=== PATIENT | male | born 1975 | race Caucasian/White ===

== ENCOUNTER 2019-01-13 12:19 | Emergency (ER) | payer OTHER ==
[~2019-01-13] VITALS: Ht 180.3 cm; Wt 135.2 kg
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
[2019-01-13 13:40] VITALS: BP 116/79
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
--- OUTSIDE RECORDS SUMMARY | 2019-01-13 14:37 | XMS REPORT ---
Author Author [facility] Organization [facility] Address [address] [place], [place] [address] Care Team Providers Care Retail Sales Assistant Name Role Phone PCP Unavailable Allergies and Adverse Reactions Name Reaction Notes Keflex hives Percocet hives Plan of Treatment Not available. Medications Name Start Date Expiration Date SIG Comments azithromycin oral tablet 250 mg 03/07/2014 03/12/2014 take 2 tablets (500 mg) by oral route once daily for 1 day then 1 tablet (250 mg) by oral route once daily for 4 days Zithromax Z-Jaleel oral tablet 250 mg 10/05/2014 10/10/2014 take 2 tablets (500 mg) by oral route once daily for 1 day then 1 tablet (250 mg) by oral route once daily for 4 days Problem List Description Status Onset *No known medical problems Active Vital Signs Date Time BP-Sys(mm[Hg] BP-Claudine(mm[Hg]) HR(bpm) RR(rpm) Temp WT HT HC BMI BSA BMI Percentile O2 Sat(%) 04/02/2015 11:39:00 AM 120 mmHg 85 mmHg 58 bpm 16 rpm 98.6 F 278 lbs 71 in 38.77 kg/m2 2.51 m2 98 % 02/26/2015 11:17:00 AM 126 mmHg 78 mmHg 80 bpm 20 rpm 97.8 F 279 lbs 71 in 38.9122 kg/m 2.5179 m 98 % 10/05/2014 9:58:00 AM 118 mmHg 82 mmHg 76 bpm 20 rpm 97.8 F 274 lbs 71 in 38.21 kg/m2 2.50 m2 96 % 03/07/2014 9:27:00 AM 108 mmHg 68 mmHg 70 bpm 18 rpm 97.2 F 279.125 lbs 71 in 38.9296 kg/m 2.5184 m 95 % 09/26/2013 8:22:00 AM 118 mmHg 82 mmHg 56 bpm 18 rpm 97.2 F 267 lbs 71 in 37.24 kg/m2 2.46 m2 98 % Social History Name Description Comments Tobacco Current every day smoker Chewing Tobacco Former Alcohol social History of Procedures Date Ordered Description Order Status 09/26/2013 12:00 AM URINALYSIS AUTO W/O SCOPE Reviewed 03/07/2014 12:00 AM THER/PROPH/DIAG INJ SC/IM Reviewed 03/07/2014 12:00 AM Decadron 8 mg NDC# [address]-27 Reviewed 03/07/2014 12:00 AM Depo-Medrol, Per 80 Mg NDC#[address]-36 Reviewed 10/05/2014 12:00 AM THER/PROPH/DIAG INJ SC/IM Reviewed 10/05/2014 12:00 AM Decadron, Per 1 Mg NDC# [address]-41 Reviewed 10/05/2014 12:00 AM Depo-Medrol, Per 80 Mg NDC#7703-3508-22 Reviewed 04/02/2015 12:00 AM CULTURE OTHR SPECIMN AEROBIC Returned Results Summary Not available. History Of Immunizations Not available. History of Past Illness Name Date of Onset Comments *No known medical problems DOT Sep 26 2013 8:44AM Upper Respiratory Infection Mar 07 2014 9:35AM Upper Respiratory Infections Oct 05 2014 10:01AM Preparticipation Physical Feb 26 2015 11:19AM Wound infection Apr 02 2015 11:40AM Payers Insurance Name Company Name Plan Name Plan Number Policy Number Policy Group Number Start Date Occ Med Occupational Medicine SHAYNE GARNETT N/A [facility] [id number] N/A History of Encounters Visit Date Visit Type Provider 04/02/2015 Office visit Rogerio Shrestha APRN 02/26/2015 Office visit Bri Fuentes GLOBAL MANAGER 10/05/2014 Office visit Bri Fuentes GLOBAL MANAGER 03/07/2014 Office visit Rogerio Shrestha GLOBAL MANAGER 09/26/2013 Office visit ALDO CORRIGAN
--- OUTSIDE RECORDS SUMMARY | 2019-01-13 14:37 | XMS REPORT ---
Author Author Shagutfa Trevino [facility] Address [address] [place], [place] [id number] Care Team Providers Care Transfer Machine Operator Name Role Phone Shagufta Trevino PCP Unavailable Allergies and Adverse Reactions Name Reaction Notes Keflex hives Percocet hives Plan of Treatment Not available. Medications Active Name Start Date Estimated Completion Date SIG Comments Aleve 220 mg oral tablet Name Start Date Expiration Date SIG Comments azithromycin 250 mg oral tablet 03/07/2014 03/12/2014 take 2 tablets (500 mg) by oral route once daily for 1 day then 1 tablet (250 mg) by oral route once daily for 4 days Zithromax Z-Jaleel 250 mg oral tablet 10/05/2014 10/10/2014 take 2 tablets (500 mg) by oral route once daily for 1 day then 1 tablet (250 mg) by oral route once daily for 4 days Problem List Description Status Onset *No known medical problems Active Vital Signs Date Time BP-Sys(mm[Hg] BP-Claudine(mm[Hg]) HR(bpm) RR(rpm) Temp WT HT HC BMI BSA BMI Percentile O2 Sat(%) 09/10/2015 3:07:00 PM 126 mmHg 70 mmHg 79 bpm 18 rpm 97.2 F 293.125 lbs 71 in 40.88 kg/m2 2.58 m2 96 % 04/02/2015 11:39:00 AM 120 mmHg 85 mmHg 58 bpm 16 rpm 98.6 F 278 lbs 71 in 38.7727 kg/m 2.5133 m 98 % 02/26/2015 11:17:00 AM 126 mmHg 78 mmHg 80 bpm 20 rpm 97.8 F 279 lbs 71 in 38.91 kg/m2 2.52 m2 98 % 10/05/2014 9:58:00 AM 118 mmHg 82 mmHg 76 bpm 20 rpm 97.8 F 274 lbs 71 in 38.2149 kg/m 2.4952 m 96 % 03/07/2014 9:27:00 AM 108 mmHg 68 mmHg 70 bpm 18 rpm 97.2 F 279.125 lbs 71 in 38.93 kg/m2 2.52 m2 95 % 09/26/2013 8:22:00 AM 118 mmHg 82 mmHg 56 bpm 18 rpm 97.2 F 267 lbs 71 in 37.2386 kg/m 2.4631 m 98 % Social History Name Description Comments Tobacco Current every day smoker Chewing Tobacco Former Alcohol social History of Procedures Date Ordered Description Order Status 09/10/2015 3:26 PM URINALYSIS AUTO W/O SCOPE Reviewed 09/26/2013 12:00 AM URINALYSIS AUTO W/O SCOPE Reviewed 03/07/2014 12:00 AM THER/PROPH/DIAG INJ SC/IM Reviewed 03/07/2014 12:00 AM Decadron 8 mg NDC# [address]-11 Reviewed 03/07/2014 12:00 AM Depo-Medrol, Per 80 Mg NDC#[address]-46 Reviewed 10/05/2014 12:00 AM THER/PROPH/DIAG INJ SC/IM Reviewed 10/05/2014 12:00 AM Decadron, Per 1 Mg NDC# [address]-73 Reviewed 10/05/2014 12:00 AM Depo-Medrol, Per 80 Mg NDC#3355-2922-27 Reviewed 04/02/2015 12:00 AM CULTURE OTHR SPECIMN AEROBIC Returned Results Summary Data and Description Results 09/10/2015 3:26 PM Clarity Ur clear Color Ur yellow Glucose Ur-sCnc neg Bilirub Ur Ql Strip neg Ketones Ur Ql Strip neg Sp Gr Ur Qn 1.030 Hgb Ur Ql Strip neg pH Ur-LsCnc 5.5 Prot Ur Ql Strip trace Urobilinogen Ur-mCnc 0.2eu/dl Nitrite Ur Ql Strip neg WBC Est Ur Ql Strip neg History Of Immunizations Not available. 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 Payers Insurance Name Company Name Plan Name Plan Number Policy Number Policy Group Number Start Date [facility] Med Occupational Medicine [id number] N/A [facility] [id number] N/A [employer] [id number] N/A History of Encounters Visit Date Visit Type Provider 09/10/2015 Office visit Shagufta Trevino TURBOGENERATOR OPERATOR 04/02/2015 Office visit Rogerio Shrestha TURBOGENERATOR OPERATOR 02/26/2015 Office visit Bri Fuentes TURBOGENERATOR OPERATOR 10/05/2014 Office visit 10/05/2014 Office visit Bri Fuentes TURBOGENERATOR OPERATOR 03/07/2014 Office visit Rogerio Shrestha TURBOGENERATOR OPERATOR 09/26/2013 Office visit ALDO CORRIGAN
--- OUTSIDE RECORDS SUMMARY | 2019-01-13 14:37 | XMS REPORT | Continuity of Care Document ---
Author Organization Unknown Address Unknown Allergies Active Description Code Type Severity Reaction Onset Reported/Identified Relationship to Patient Clinical Status Yes CEPHALEXIN 66794961 DRUG N/A N/A Yes ENDOCET 30858200 BRANDNAME N/A N/A Yes PERCOCET 13705240 BRANDNAME N/A N/A Medications There is no data. Problems There is no data. Procedures There is no data. Results There is no data. Encounters ACCT No. Visit Date/Time Discharge Status Pt. Type Provider Facility Loc./Unit Complaint [id number] 09/01/2018 14:57:59 09/01/2018 23:59:59 CLS Outpatient Shagufta Trevino [id number] 09/08/2017 14:47:41 09/08/2017 23:59:59 CLS Outpatient Shagufta Trevino [id number] 09/10/2015 15:57:44 09/10/2015 23:59:59 CLS Outpatient Shagufta Trevino [id number] 04/02/2015 12:31:38 04/02/2015 23:59:59 CLS Outpatient Rogerio Shrestha [id number] 03/26/2015 22:14:10 03/26/2015 23:59:59 CLS Outpatient Bri Fuentes [id number] 03/07/2014 10:28:32 03/07/2014 23:59:59 CLS Outpatient Rogerio Shrestha [id number] 09/26/2013 09:19:40 09/26/2013 23:59:59 CLS Outpatient ALDO EVANS [id number] 04/27/2014 16:18:24 04/27/2014 16:18:24 DIS Outpatient [id number] 10/26/2015 09:57:34 10/26/2015 23:59:59 CLS Outpatient [facility] emg [id number] 09/09/2018 09:56:48 Document Registration [id number] 01/15/2018 10:23:05 Document Registration [id number] 01/15/2018 10:01:07 Document Registration [id number] 09/10/2017 11:29:22 Document Registration
--- OUTSIDE RECORDS SUMMARY | 2019-01-13 14:37 | XMS REPORT | CCD ---
Author CRISTY Bennett Unknown Address [address] [facility] [address] [place], [place] [address] Care Team Providers Care Community Recreation Programmer Name Role Phone HANDS RMAÓN, TOMI SCHERER Attphys Vital Signs Unknown or Not Available. Allergies Allergy Code Allergy Type Reaction Status CEPHALEXIN 2231 Drug allergy Active PERCOCET 40843 Drug allergy Active ENDOCET 457670 Drug allergy Active Procedures Unknown or Not Available. History of Immunizations Unknown or Not Available. Problems Unknown or Not Available. Results Unknown or Not Available. Active Medications Unknown or Not Available. Medications Administered During Visit Unknown or Not Available. Encounters Encounter Diagnosis Diagnosis Code Start Date ENCOUNTER FOR REMOVAL OF SUTURES V5832 04/05/2015 Social History Smoking Status Code Start Date End Date Never smoker [id number] Patient Decision Aids Unknown or Not Available. Discharge Instructions You were admitted to [facility] on 04/05/2015 with a principal diagnosis of ENCOUNTER FOR REMOVAL OF SUTURES. You were discharged from [facility] on 04/05/2015. Should you have any questions prior to discharge, please contact a member of your healthcare team. If you have left the hospital and have any questions, please contact your primary care physician. Chief Complaint and Reason For Visit Chief Complaint Date of Onset REMOVE STICHES Function Status Unknown or Not Available. Plan of Care Unknown or Not Available. Referral/Transition of Care Unknown or Not Available.
--- OUTSIDE RECORDS SUMMARY | 2019-01-13 14:37 | XMS REPORT ---
Author Author Shagufta Trevino [facility] Address [address] [facility] [address] [place], [place] [address] Care Team Providers Care Marble Worker Name Role Phone Shagufta Trevino PCP Allergies and Adverse Reactions Name Reaction Notes [...] HC BMI BSA BMI Percentile O2 Sat(%) 09/08/2017 2:06:00 PM 136 mmHg 71 mmHg 67 bpm 16 rpm 98.4 F 302 lbs 71 in 42.12 kg/m2 2.62 m2 97 % 09/10/2015 3:07:00 PM 126 mmHg 70 mmHg 79 bpm 18 rpm 97.2 F 293.125 lbs 71 in 40.8822 kg/m 2.5808 m 96 % 04/02/2015 11:39:00 AM 120 mmHg [...] 3:26 PM URINALYSIS AUTO W/O SCOPE Reviewed 09/08/2017 2:40 PM URINALYSIS AUTO W/O SCOPE Reviewed 09/26/2013 12:00 AM URINALYSIS AUTO W/O SCOPE Reviewed 03/07/2014 12:00 AM THER/PROPH/DIAG INJ SC/IM Reviewed 03/07/2014 12:00 AM Decadron 8 mg NDC# [address]-44 Reviewed 03/07/2014 12:00 AM Depo-Medrol, Per 80 Mg NDC#[address]-23 Reviewed 10/05/2014 12:00 AM THER/PROPH/DIAG INJ SC/IM Reviewed 10/05/2014 12:00 AM Decadron, Per 1 Mg NDC# [address]-64 Reviewed 10/05/2014 12:00 AM Depo-Medrol, Per 80 Mg NDC#7147-1308-82 Reviewed 04/02/2015 12:00 AM CULTURE OTHR SPECIMN AEROBIC Reviewed Results Summary Date and Description Results 09/10/2015 3:26 PM Clarity Ur clear Color Ur yellow Glucose Ur-sCnc neg Bilirub Ur Ql Strip neg Ketones Ur Ql Strip neg Sp Gr Ur Qn 1.030 Hgb Ur Ql Strip neg pH Ur-LsCnc 5.5 Prot Ur Ql Strip trace Urobilinogen Ur-mCnc 0.2eu/dl Nitrite Ur Ql Strip neg WBC Est Ur Ql Strip neg 09/08/2017 2:40 PM Color Ur lt. yellow Glucose Ur-sCnc neg Bilirub Ur Ql Strip neg Ketones Ur Ql Strip neg Hgb Ur Ql Strip neg Prot Ur Ql Strip neg Urobilinogen Ur-mCnc 0.2eu/dl Nitrite Ur Ql Strip neg WBC Est Ur Ql Strip neg 09/08/2017 3:18 PM Sp Gr Ur Qn 1.015 pH Ur-LsCnc 5.5 History Of Immunizations Not available. 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 Sep 08 2017 2:09PM Payers Insurance Name Company Name Plan Name Plan Number Policy Number Policy Group Number Start Date [facility] Med Occupational Medicine [id number] Thursday, September 08, 2016 [facility] [id number] N/A [employer] [id number] N/A History of Encounters Visit Date Visit Type Provider 09/08/2017 Office visit Shagufta Trevino AIR TECHNICIAN 09/10/2015 Office visit Shagufta Trevino AIR TECHNICIAN 04/02/2015 Office visit Rogerio Shrestha AIR TECHNICIAN 02/26/2015 Office visit Bri Fuentes AIR TECHNICIAN 10/05/2014 Office visit 10/05/2014 Office visit Bri Fuentes AIR TECHNICIAN 03/07/2014 Office visit Rogerio Shrestha AIR TECHNICIAN 09/26/2013 Office visit ALDO CORRIGAN
--- OUTSIDE RECORDS SUMMARY | 2019-01-13 14:37 | XMS REPORT ---
Author Author Shaugfta Trevino [facility] Address [address] [facility] [address] [place], [place] [address] Care Team Providers Care Pick Pack Worker Name Role Phone Shagufta Trevino PCP [...] HC BMI BSA BMI Percentile O2 Sat(%) 09/01/2018 2:04:00 PM 128 mmHg 86 mmHg 70 bpm 18 rpm 98.1 F 298.125 lbs 71 in 41.5796 kg/m 2.6027 m 96 % 09/08/2017 2:06:00 PM 136 mmHg 71 mmHg [...] F 267 lbs 71 in 37.2386 kg/m 2.46 m2 98 % Social History Name Description Comments Tobacco Former smoker Chewing Tobacco Former 09/01/2018 - Alcohol Light 09/01/2018 - social History of Procedures Date Ordered Description Order Status 09/10/2015 3:26 PM URINALYSIS AUTO W/O SCOPE Reviewed 09/08/2017 2:40 PM URINALYSIS AUTO W/O SCOPE Reviewed 09/01/2018 3:23 PM URINALYSIS AUTO W/O SCOPE Reviewed 09/26/2013 12:00 AM URINALYSIS AUTO W/O SCOPE Reviewed 03/07/2014 12:00 AM THER/PROPH/DIAG INJ SC/IM Reviewed 03/07/2014 12:00 AM Decadron 8 mg NDC# [address]-19 Reviewed 03/07/2014 12:00 AM Depo-Medrol, Per 80 Mg NDC#[address]-58 Reviewed 10/05/2014 12:00 AM THER/PROPH/DIAG INJ SC/IM Reviewed 10/05/2014 12:00 AM Decadron, Per 1 Mg NDC# [address]-46 Reviewed 10/05/2014 12:00 AM Depo-Medrol, Per 80 Mg NDC#3122-6654-29 Reviewed 04/02/2015 12:00 AM CULTURE OTHR SPECIMN [...] Gr Ur Qn 1.015 pH Ur-LsCnc 5.5 09/01/2018 3:23 PM Color Ur lt. yellow Glucose Ur-sCnc neg Bilirub Ur Ql Strip neg Ketones Ur Ql Strip neg Sp Gr Ur Qn 1.025 Hgb Ur Ql Strip neg pH Ur-LsCnc 5.5 Prot Ur Ql Strip neg Urobilinogen Ur-mCnc [...] driving license renewal Sep 08 2017 2:09PM Encounter for Department of Transportation (DOT) examination for driving license renewal Sep 01 2018 2:08PM Payers Insurance Name Company Name Plan Name Plan Number Policy Number Policy Group Number Start Date [facility] Med Occupational Medicine [id number] Thursday, September 08, 2016 [facility] [id number] [facility] [id number] N/A [employer] [id number] N/A History of Encounters Visit Date Visit Type Provider 09/01/2018 Office visit Shagufta Trevino RAND BUTTER 09/08/2017 Office visit Shagufta Trevino RAND BUTTER 09/10/2015 Office visit Shagufta Trevino RAND BUTTER 04/02/2015 Office visit Rogerio Shrestha RAND BUTTER 02/26/2015 Office visit Bri Fuentes RAND BUTTER 10/05/2014 Office visit 10/05/2014 Office visit Bri Fuentes RAND BUTTER 03/07/2014 Office visit Rogerio Shrestha RAND BUTTER 09/26/2013 Office visit ALDO CORRIGAN
== END 2019-01-13 13:40 | disposition home or self-care (01) ==
LOC: ER 12:20
DX: S16.1XXA Strain of muscle, fascia and tendon at neck level, initial encounter (principal); M54.5 Low back pain; R40.2142 Coma scale, eyes open, spontaneous, at arrival to emergency department; R40.2252 Coma scale, best verbal response, oriented, at arrival to emergency department; R40.2362 Coma scale, best motor response, obeys commands, at arrival to emergency department; V49.40XA Driver injured in collision with unspecified motor vehicles in traffic accident, initial encounter
CPT/HCPCS: 72040